=== PATIENT | female | born 1990 | race American Indian/Alaskan Native ===

== ENCOUNTER 2017-05-04 12:47 | Emergency (ER) | payer MEDICAID, OTHER ==
[2017-05-04 13:16] VITALS: BP 124/71
[2017-05-04 15:22] LABS: HCG Qualitative,Urine Negative (Negative)
[2017-05-04] MEDS ORDERED: MOTRIN PO ONE (15:24)
[2017-05-04] MEDS ORDERED: TYLENOL PO ONE (15:24)
[2017-05-04 15:26] LABS: Bilirubin,Urine NEG (Negative); Blood,Urine NEG (Negative); Color,Urine Yellow (Yellow); Mucus,Urine FEW /HPF; Protein,Urine <15 mg/dL mg/dL (Negative)
--- NOTE | 2017-05-04 15:39 | Emergency Department Report ---
ED General Adult HPI - General Chief complaint: Dyspnea/Respdistress Stated complaint: LWR BACK PAIN/ABD PAIN Time Seen by Provider: 05/04/17 15:23 Source: patient Mode of arrival: Ambulatory Limitations: No Limitations - History of Present Illness Initial comments: Patient is a 26-year-old female no significant past medical history presents with lower back pain that's been going on for last couple days. Patient's lower back pain is a 4 out of 10 located in the lower portion of her back does not radiate is an achy type of pain and it occurs intermittently. Patient states that she will also wants to test for . She states that she is sexually active and her last menstrual period was a couple weeks ago. Patient denies any vaginal discharge or any vaginal bleeding. - Related Data Previous Rx's Medication Instructions Recorded Last Taken Type Diclofenac Sodium [Voltaren] 100 gm TP Q6H #1 gel..gram. 05/04/17 Unknown Rx Allergies Allergy/AdvReac Type Severity Reaction Status Date / Time No Known Allergies Allergy Verified 05/04/17 13:13 ED Review of Systems ROS: Stated complaint: LWR BACK PAIN/ABD PAIN Other details as noted in HPI Constitutional: denies: chills, fever Eyes: denies: eye pain, eye discharge, vision change ENT: denies: ear pain, throat pain Respiratory: denies: cough, shortness of breath, wheezing Cardiovascular: denies: chest pain, palpitations Endocrine: no symptoms reported Gastrointestinal: denies: abdominal pain, nausea, diarrhea Genitourinary: denies: urgency, dysuria, discharge Musculoskeletal: back pain. denies: joint swelling, arthralgia Skin: denies: rash, lesions Neurological: denies: headache, weakness, paresthesias Psychiatric: denies: anxiety, depression Hematological/Lymphatic: denies: easy bleeding, easy bruising ED Past Medical Hx - Past Medical History Previous Medical History?: No - Surgical History Past Surgical History?: No - Social History Smoking Status: Never Smoker - Medications Home Medications: Home Medications Medication Instructions Recorded Confirmed Last Taken Type Diclofenac Sodium [Voltaren] 100 gm TP Q6H #1 gel..gram. 05/04/17 Unknown Rx ED Physical Exam - General Limitations: No Limitations General appearance: alert, in no apparent distress - Head Head exam: Present: atraumatic, normocephalic - Eye Eye exam: Present: normal appearance - ENT ENT exam: Present: mucous membranes moist - Neck Neck exam: Present: normal inspection - Respiratory Respiratory exam: Present: normal lung sounds bilaterally. Absent: respiratory distress - Cardiovascular Cardiovascular Exam: Present: regular rate, normal rhythm. Absent: systolic murmur, diastolic murmur, rubs, gallop - GI/Abdominal GI/Abdominal exam: Present: soft, normal bowel sounds - Extremities Exam Extremities exam: Present: normal inspection - Back Exam Back exam: Present: normal inspection - Neurological Exam Neurological exam: Present: alert, oriented X3 - Psychiatric Psychiatric exam: Present: normal affect, normal mood - Skin Skin exam: Present: warm, dry, intact, normal color. Absent: rash ED Course Vital Signs 05/04/17 13:14 Temperature 98.8 F Pulse Rate 95 H Respiratory 18 Rate Blood Pressure 124/71 O2 Sat by Pulse 98 Oximetry ED Medical Decision Making - Lab Data Lab Results 05/04/17 Range/Units 14:56 Urine Color Yellow (Yellow) Urine Turbidity Clear (Clear) Urine pH 6.0 (5.0-7.0) Ur Specific [place] 1.021 (1.003-1.030) Urine Protein <15 mg/dl (Negative) mg/dL Urine Glucose (UA) Neg (Negative) mg/dL Urine Ketones Neg (Negative) mg/dL Urine Blood Neg (Negative) Urine Nitrite Neg (Negative) Ur Reducing Substances Not Reportable Urine Bilirubin Neg (Negative) Urine Ictotest Not Reportable Urine Urobilinogen 4.0 (<2.0) mg/dL Ur Leukocyte Esterase Tr (Negative) Urine WBC (Auto) 1.0 (0.0-6.0) /HPF Urine RBC (Auto) 2.0 (0.0-6.0) /HPF U Epithel Cells (Auto) 8.0 (0-13.0) /HPF Urine Mucus Few /HPF Urine HCG, Qual Negative (Negative) - Medical Decision Making Cdx: UTI ddx: Lower back strain, I will give pt oral tylenol, urinalysis and urine test. Discussed plan with patient and patient agrees with plan. Additional verbal discharge instructions were given. Critical care attestation.: If time is entered above; I have spent that time in minutes in the direct care of this critically ill patient, excluding procedure time. ED Disposition Clinical Impression: Lower abdominal pain Lower back pain Qualifiers: Chronicity: acute Back pain laterality: midline Sciatica presence: without sciatica Qualified Code(s): M54.5 - Low back pain Disposition: DC-01 TO HOME OR SELFCARE Is pt being admited?: No Does the pt Need Aspirin: No Condition: Stable Instructions: Low Back Strain (ED), Acute Low Back Pain (ED) Prescriptions: Diclofenac Sodium [Voltaren] 100 gm TP Q6H #1 gel..gram.
== END 2017-05-04 16:11 | disposition home or self-care (01) ==
LOC: ED 12:47
DX: M54.5 Low back pain (principal)
CPT/HCPCS: 81001; 81025; 99283

== ENCOUNTER 2017-06-12 07:57 | Emergency (ER) | payer MEDICAID ==
[2017-06-12 08:03] VITALS: BP 104/71
--- NOTE | 2017-06-12 08:58 | Emergency Department Report ---
ED Female HPI - General Chief complaint: Urogenital-Female Stated complaint: ABD PAIN Time Seen by Provider: 06/12/17 08:37 Source: patient Mode of arrival: Ambulatory Limitations: No Limitations - History of Present Illness Initial comments: 26-year-old female past medical history none presents with complaint of 4-5 days of yellow to white to clear vaginal discharge. Patient denies abdominal pain nausea vomiting. Primarily complaining of vaginal discharge. States this is similar to previous episodes of bacterial vaginosis. Last menstrual period was 06/06/17. Patient is awake alert and oriented 3 and nontoxic appearing. Denies dysuria hematuria or increased urinary frequency. MD Complaint: vaginal discharge, possible STD Onset/Timin -: week(s) Consistency: intermittent Improves with: none Are you Now?: No Associated Symptoms: vaginal discharge - Related Data Sexually active: Yes Previous Rx's Medication Instructions Recorded Last Taken Type Diclofenac Sodium [Voltaren] 100 gm TP Q6H #1 gel..gram. 05/04/17 Unknown Rx metroNIDAZOLE [Metronidazole] 500 mg PO BID #14 tablet 06/12/17 Unknown Rx Allergies Allergy/AdvReac Type Severity Reaction Status Date / Time No Known Allergies Allergy Verified 05/04/17 13:13 ED Review of Systems ROS: Stated complaint: ABD PAIN Other details as noted in HPI Constitutional: denies: chills, fever Eyes: denies: eye pain, eye discharge, vision change ENT: denies: ear pain, throat pain Respiratory: denies: cough, shortness of breath, wheezing Cardiovascular: denies: chest pain, palpitations Endocrine: no symptoms reported Gastrointestinal: denies: abdominal pain, nausea, diarrhea Genitourinary: discharge. denies: urgency, dysuria Musculoskeletal: denies: back pain, joint swelling, arthralgia Skin: denies: rash, lesions Neurological: denies: headache, weakness, paresthesias Psychiatric: denies: anxiety, depression Hematological/Lymphatic: denies: easy bleeding, easy bruising ED Past Medical Hx - Past Medical History Previous Medical History?: No - Surgical History Past Surgical History?: No - Social History Smoking Status: Never Smoker Substance Use Type: Alcohol - Medications Home Medications: Home Medications Medication Instructions Recorded Confirmed Last Taken Type Diclofenac Sodium [Voltaren] 100 gm TP Q6H #1 gel..gram. 05/04/17 Unknown Rx metroNIDAZOLE [Metronidazole] 500 mg PO BID #14 tablet 06/12/17 Unknown Rx ED Physical Exam - General Limitations: No Limitations General appearance: alert, in no apparent distress - Head Head exam: Present: atraumatic, normocephalic - Eye Eye exam: Present: normal appearance, PERRL, EOMI - ENT ENT exam: Present: mucous membranes moist - Neck Neck exam: Present: normal inspection - Respiratory Respiratory exam: Present: normal lung sounds bilaterally. Absent: respiratory distress - Cardiovascular Cardiovascular Exam: Present: regular rate, normal rhythm. Absent: systolic murmur, diastolic murmur, rubs, gallop - GI/Abdominal GI/Abdominal exam: Present: soft, normal bowel sounds - External exam: Present: normal external exam Speculum exam: Present: vaginal discharge Bi-manual exam: Present: normal bi-manual exam - Extremities Exam Extremities exam: Present: normal inspection - Back Exam Back exam: Present: normal inspection - Neurological Exam Neurological exam: Present: alert, oriented X3 - Psychiatric Psychiatric exam: Present: normal affect, normal mood - Skin Skin exam: Present: warm, dry, intact, normal color. Absent: rash ED Course Vital Signs 06/12/17 08:00 Temperature 98.4 F Pulse Rate 99 H Respiratory 20 Rate Blood Pressure 104/71 O2 Sat by Pulse 98 Oximetry ED Medical Decision Making - Medical Decision Making A/P: Vaginal discharge 1- 2- 3- 4- Critical care attestation.: If time is entered above; I have spent that time in minutes in the direct care of this critically ill patient, excluding procedure time. ED Disposition Clinical Impression: Bacterial vaginosis Disposition: DC-01 TO HOME OR SELFCARE Is pt being admited?: No Does the pt Need Aspirin: No Condition: Stable Instructions: Bacterial Vaginosis (ED) Prescriptions: metroNIDAZOLE [Metronidazole] 500 mg PO BID #14 tablet Referrals: PRIMARY CAREMD [Primary Care Provider] - 3-5 Days [facility] [Provider Group] - 3-5 Days [facility] [Provider Group] - 3-5 Days MELI FINNEY MD [Staff Physician] - 3-5 Days Forms: STI Treatment and Prevention Time of Disposition: 09:56
[2017-06-12 09:15] LABS: Bacteria,Urine 1+ /HPF (Negative); Bilirubin,Urine NEG (Negative); Blood,Urine NEG (Negative); Color,Urine Amber (Yellow); Mucus,Urine 3+ /HPF
[2017-06-12 09:19] LABS: HCG Qualitative,Urine Negative (Negative)
== END 2017-06-12 11:02 | disposition home or self-care (01) ==
LOC: ED 07:57
DX: N76.0 Acute vaginitis (principal)
CPT/HCPCS: 81001; 81025; 87210; 87591; 99283

== ENCOUNTER 2020-08-14 12:48 | Emergency (ER) | payer SELFPAY ==
[2020-08-14 13:01] VITALS: BP 131/81
--- NOTE | 2020-08-14 13:56 | Emergency Department Report ---
ED ENT HPI - General Chief complaint: Dental/Oral Stated complaint: SWOLLEN PAROTID GLAND Time Seen by Provider: 08/14/20 13:15 Source: patient Mode of arrival: Ambulatory Limitations: No Limitations - History of Present Illness Initial comments: 29-year-old -[place] female presents to the emergency room complaining of left side of face swelling started 2 to 3 days ago. Patient states that she is aware that she has a bad tooth on the bottom of her job but not the top. Patient states that she had some discharge from the top of her jaw. States that she has pain just in front of her ear. She reports it is about a 3 out of 10. She denies any trauma to her jaw. Patient denies any fever chills or nausea no vomiting. Patient reports she is currently on no medications. Has not been drooling. MD complaint: other Onset/Timin -: days(s) Location: other Severity: mild Severity scale (0 -10): 3 Quality: aching Consistency: intermittent Improves with: none Worsens with: eating Context- Dental: history of dental caries, poor dental care Associated Symptoms: denies: fever, cough, gum swelling, toothache, pain with swallowing, sore throat, tinnitus, hearing loss, discharge from ear, rhinorrhea - Related Data Previous Rx's Medication Instructions Recorded Last Taken Type Diclofenac Sodium [Voltaren] 100 gm TP Q6H #1 gel..gram. 05/04/17 Unknown Rx metroNIDAZOLE [Metronidazole] 500 mg PO BID #14 tablet 06/12/17 Unknown Rx Azithromycin [Zithromax] 1 gm PO ONCE #1 packet 06/28/17 Unknown Rx Ibuprofen [Motrin 800 MG tab] 800 mg PO Q8HR PRN #30 tablet 08/14/20 Unknown Rx Allergies Allergy/AdvReac Type Severity Reaction Status Date / Time Penicillins Allergy Hives Verified 08/14/20 12:53 ED Dental HPI - General Chief complaint: Dental/Oral Stated complaint: SWOLLEN PAROTID GLAND Time Seen by Provider: 08/14/20 13:15 Source: patient Mode of arrival: Ambulatory Limitations: No Limitations - Related Data Previous Rx's Medication Instructions Recorded Last Taken Type Diclofenac Sodium [Voltaren] 100 gm TP Q6H #1 gel..gram. 05/04/17 Unknown Rx metroNIDAZOLE [Metronidazole] 500 mg PO BID #14 tablet 06/12/17 Unknown Rx Azithromycin [Zithromax] 1 gm PO ONCE #1 packet 06/28/17 Unknown Rx Ibuprofen [Motrin 800 MG tab] 800 mg PO Q8HR PRN #30 tablet 08/14/20 Unknown Rx Allergies Allergy/AdvReac Type Severity Reaction Status Date / Time Penicillins Allergy Hives Verified 08/14/20 12:53 ED Review of Systems ROS: Stated complaint: SWOLLEN PAROTID GLAND Other details as noted in HPI Comment: All other systems reviewed and negative ED Past Medical Hx - Past Medical History Previous Medical History?: No - Surgical History Past Surgical History?: Yes Additional Surgical History: C SECTION - Social History Smoking Status: Never Smoker Substance Use Type: Alcohol - Medications Home Medications: Home Medications Medication Instructions Recorded Confirmed Last Taken Type Diclofenac Sodium [Voltaren] 100 gm TP Q6H #1 gel..gram. 05/04/17 Unknown Rx metroNIDAZOLE [Metronidazole] 500 mg PO BID #14 tablet 06/12/17 Unknown Rx Azithromycin [Zithromax] 1 gm PO ONCE #1 packet 06/28/17 Unknown Rx Ibuprofen [Motrin 800 MG tab] 800 mg PO Q8HR PRN #30 tablet 08/14/20 Unknown Rx ED Physical Exam - General Limitations: No Limitations General appearance: alert, in no apparent distress - Head Head exam: Present: atraumatic, normocephalic - Eye Eye exam: Present: normal appearance ED Course Vital Signs 08/14/20 12:57 Temperature 98.6 F Pulse Rate 83 Respiratory 20 Rate Blood Pressure 131/81 O2 Sat by Pulse 98 Oximetry ED Medical Decision Making - Medical Decision Making 29-year-old -[place] female presents to the emergency room complaining of left side of face swelling started 2 to 3 days ago. Patient states that she is aware that she has a bad tooth on the bottom of her job but not the top. Patient states that she had some discharge from the top of her jaw. States that she has pain just in front of her ear. She reports it is about a 3 out of 10. She denies any trauma to her jaw. Patient denies any fever chills or nausea no vomiting. Patient reports she is currently on no medications. Has not been drooling. Recommend ibuprofen massage to the area increase your fluid intake and follow-up with the ear nose and throat provider. Critical care attestation.: If time is entered above; I have spent that time in minutes in the direct care of this critically ill patient, excluding procedure time. ED Disposition Clinical Impression: Sialadenitis Disposition: DC- TO HOME OR SELFCARE Is pt being admited?: No Does the pt Need Aspirin: No Condition: Stable Instructions: Parotitis, [id number] Additional Instructions: The choice of treatment for an inflamed parotid gland depends on the underlying cause. However, there are certain measures that may provide symptomatic relief irrespective of the causative condition. These measures may include: ?Drugs to relieve pain and inflammation like NSAIDs (non-steroidal anti- inflammatory drugs). ?Drugs to promote saliva secretion (sialogogues). ?Gentle massage of the gland. ?Hydration (drinking more water). Prescriptions: Ibuprofen [Motrin 800 MG tab] 800 mg PO Q8HR PRN #30 tablet PRN Reason: Pain , Severe (7-10) Referrals: JIM OCHOA MD [Staff Physician] - 3-5 Days Forms: Work/School Release Form(ED) Time of Disposition: 13:59
== END 2020-08-14 14:22 | disposition home or self-care (01) ==
LOC: ED 12:48
DX: K11.20 Sialoadenitis, unspecified (principal); Z98.890 Other specified postprocedural states; Z79.1 Long term (current) use of non-steroidal anti-inflammatories (NSAID); Z79.2 Long term (current) use of antibiotics; Z79.899 Other long term (current) drug therapy; Z88.0 Allergy status to penicillin
CPT/HCPCS: 99282

== ENCOUNTER 2020-11-19 09:04 | Emergency (ER) | payer BC ==
[2020-11-19 09:31] VITALS: BP 113/70
[2020-11-19] MEDS ORDERED: ONDANSETRON 4 MG/2 ML INJ IV ONE (10:04)
[2020-11-19] MEDS ORDERED: SODIUM CHLORIDE 0.9% 1000 ML 1,000 ML IV ONE (10:04)
--- NOTE | 2020-11-19 10:08 | Emergency Department Report ---
Vomiting/Diarrhea - [facility] Chief Complaint: Nausea/Vomiting/Diarrhea Stated Complaint: 18WKS /DEHYDRATION/VOMITING Time Seen by Provider: 11/19/20 09:41 Duration: 2 Days Severity: moderate Nausea/Vomiting Severity: Moderate Pain Severity: None Symptoms: Yes Family w/ Similar Symptoms, No Recent Unusual Foods, No Recent Untreated Water, No Recent use of Antibiotics Other History: The patient was evaluated in the emergency department for symptoms described in the history of present illness. He/she was evaluated in the context of the global COVID-19 pandemic, which necessitated consideration that the patient might be at risk for infection with the virus that causes COVID-19. Institutional protocols and algorithms that pertain to the evaluation of patients at risk for COVID-19 are in a state of rapid change based on information released by regulatory bodies including the CDC and federal and state organizations. These policies and algorithms were followed during the patient's care in the emergency department. Please note that these policies, procedures and recommendations changed on a rapid basis. 30-year-old obese -Prydeinig female that reports she is currently 14 weeks presents to the emergency room complaining of a 2-day history of nausea and vomiting with dry mouth and headache. Patient states that her doctor given her Reglan but it makes her so sleepy. Patient is 3 para 2 with a last menstrual period 08/13/2020. Patient reports that she is currently followed by Dr. Joanne Suarez at [facility]. Her last visit was October 29. Patient denies any vaginal bleeding vaginal discharge or pelvic pain. ED Review of Systems ROS: Stated complaint: 18WKS /DEHYDRATION/VOMITING Other details as noted in HPI ED Past Medical Hx - Past Medical History Previous Medical History?: No - Surgical History Past Surgical History?: No Additional Surgical History: C SECTION - Social History Smoking Status: Never Smoker Substance Use Type: Alcohol - Medications Home Medications: Home Medications Medication Instructions Recorded Confirmed Last Taken Type Diclofenac Sodium [Voltaren] 100 gm TP Q6H #1 gel..gram. 05/04/17 Unknown Rx metroNIDAZOLE [Metronidazole] 500 mg PO BID #14 tablet 06/12/17 Unknown Rx Azithromycin [Zithromax] 1 gm PO ONCE #1 packet 06/28/17 Unknown Rx Ibuprofen [Motrin 800 MG tab] 800 mg PO Q8HR PRN #30 tablet 08/14/20 Unknown Rx Ondansetron [Zofran Odt] 4 mg PO Q8HR #15 tab.rapdis 11/19/20 Unknown Rx Vomiting Diarrhea Exam - Exam General: Vital signs noted. No distress. Alert and acting appropriately. HEENT: No Pharyngeal Erythema, No Pharyngeal Exudates, No Moist Mucous Membranes, No Rhinorrhea, No Conjuctival Injection, No Frontal Tenderness, No Maxillary Tenderness Neck: No Adenopathy, No Rigidity Lungs: Yes Clear Lung Sounds, Yes Good Air Exchange, No Wheezes, No Stridor, No Cough, No Nasal Flaring, No Retractions, No Use of Accessory Muscles Heart exam: Regular: Yes, Murmur: No, Tachycardia: No Abdomen: Tenderness: No, Peritoneal Signs: No, Distention: No, Hyperactive Bowel sounds: No Skin exam: Rash: No, Edema: No, Normal turgor: Yes Neurologic: Alert and oriented, no deficits. Musculoskeletal: Unremarkable. ED Course Vital Signs 11/19/20 09:26 Temperature 98.2 F Pulse Rate 87 Respiratory 16 Rate Blood Pressure 113/70 [Left] O2 Sat by Pulse 97 Oximetry - Reevaluation(s) Reevaluation #1: 11/19/20 12:00 Patient reports she feels much better after having Zofran and fluids. She is gone to the bathroom to give us a urine. ED Medical Decision Making - Lab Data Result diagrams: 11/19/20 10:21 11/19/20 10:21 - Medical Decision Making 30-year-old obese -Prydeinig female that reports she is currently 14 weeks presents to the emergency room complaining of a 2-day history of nausea and vomiting with dry mouth and headache. Patient states that her doctor given her Reglan but it makes her so sleepy. Patient is 3 para 2 with a last menstrual period 08/13/2020. Patient reports that she is currently followed by Dr. Joanne Suarez at [facility]. Her last visit was October 29. Patient denies any vaginal bleeding vaginal discharge or pelvic pain. CBC CMP urinalysis INT normal saline IV Zofran. Critical care attestation.: If time is entered above; I have spent that time in minutes in the direct care of this critically ill patient, excluding procedure time. ED Disposition Clinical Impression: Hyperemesis gravidarum before end of 22 week gestation with carbohydrate depletion Disposition: HOME / SELF CARE / HOMELESS Is pt being admited?: No Does the pt Need Aspirin: No Condition: Stable Instructions: Hyperemesis Gravidarum Additional Instructions: Take medication as prescribed. Increase your fluid intake advance her diet as tolerated follow-up with your [facility]. Prescriptions: Ondansetron [Zofran Odt] 4 mg PO Q8HR #15 tab.rapdis Referrals: PRIMARY CARE, [Primary Care Provider] - 3-5 Days [facility] [Provider Group] - 3-5 Days Time of Disposition: 13:05
[2020-11-19 10:58] LABS: Alanine Aminotransferase 8 units/L (7-56); Albumin 3.7 g/dL (3.9-5); Blood Urea Nitrogen 4 mg/dL (7-17); Calcium 9.4 mg/dL (8.4-10.2); Hemolysis Index 0
[2020-11-19 11:00] LABS: BUN/Creatinine Ratio 10
[2020-11-19 11:32] LABS: Basophils # (Auto) 0.1 K/mm3 (0.0-0.1); Eosinophils # (Auto) 0.1 K/mm3 (0.0-0.4); Eosinophils % (Auto) 1.1 % (0.0-4.3); Hematocrit 29.6 % (30.3-42.9); Hemoglobin 9.2 gm/dl (10.1-14.3); Lymphocytes # (Auto) 1.8 K/mm3 (1.2-5.4); Lymphocytes % (Auto) 25.8 % (13.4-35.0); Mean Corpuscular HGB Conc 31 % (30-34); Mean Corpuscular Volume 72 fl (79-97); Monocytes # (Auto) 0.5 K/mm3 (0.0-0.8); Monocytes % (Auto) 7.4 % (0.0-7.3); Platelet Count 315 K/mm3 (140-440); Red Blood Count 4.11 M/mm3 (3.65-5.03)
[2020-11-19 13:19] LABS: Bilirubin,Urine NEG (Negative); Blood,Urine NEG (Negative); Color,Urine Yellow (Yellow); Mucus,Urine 3+ /HPF
== END 2020-11-19 13:05 | disposition home or self-care (01) ==
LOC: ED 09:04
DX: O21.1 Hyperemesis gravidarum with metabolic disturbance (principal); F10.20 Alcohol dependence, uncomplicated; Z3A.14 14 weeks gestation of pregnancy
CPT/HCPCS: 36415; 80053; 81001; 84702; 85025; 96361; 96374; 99283; J2405; J7030